=== PATIENT | female | born 1995 | race African-American/Black ===

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

== ENCOUNTER 2017-03-01 16:53 | Emergency (ER) | payer SELFPAY ==
[~2017-03-01] VITALS: Ht 149.9 cm; Wt 53.4 kg
[~2017-03-01 16:53] MED LIST changes: +IBUP800T23 PO
[2017-03-01 16:55] VITALS: BP 113/59; PULSE 86; RESP 20; TEMP 98.7; O2SAT 100
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
== END 2017-03-01 19:34 | disposition home or self-care (01) ==
LOC: NEPK 16:53
DX: S00.83XA Contusion of other part of head, initial encounter (principal); Z79.899 Other long term (current) drug therapy; Y04.8XXA Assault by other bodily force, initial encounter
CPT/HCPCS: 99282